=== PATIENT | male | born 1990 | race Caucasian/White ===

== ENCOUNTER 2017-07-02 09:25 | Inpatient (IN) | payer OTHER ==
[~2017-07-02] VITALS: Ht 175.3 cm; Wt 65.2 kg
[2017-07-02] VITALS (8 sets, daily range): BP systolic 110–122; BP diastolic 61–81; PULSE 61–72; RESP 12–20; O2SAT 100
--- NOTE | 2017-07-02 09:29 | ED.REPORT ---
HPI-General Illness Date of Service Jul 02, 2017 ED Provider: Wisam Colbert MD Pt is a 27 y/o male who presents to the ED via EMS due to aggressive behavior from meth use per [employer]. Medics were called by police after the patient needed to be sedated. Pt attempted to jump from a parked car into another strangers car and was fighting police once they arrived. At that time the patient stated that his eyes were "burning". Prior to arrival, the patient was given 5mg of versed and 250mg of ketamine prior to arrival, and his blood sugar was 132. Police report abrasions to pt's skin, but no remarkable injuries. Nursing Notes Stated Complaint: aggressive, confused Nursing Notes Reviewed: Yes General Time Seen by MD: 09:28 Chief Complaint Altered mental status Hx Obtained From: Police Unable to Obtain Hx: Patient condition, Mental status Arrived By: Police Recent Healthcare: No recent doctor visit, No recent hospitalization Past Medical History Past Medical History none reported Social History Drug Use: IV drugs Ambulatory Status Independent Review of Systems Unable to Obtain ROS Patient condition, Mental status, Intubated Physical Exam Vital Signs Vital Signs Date Time Temp Pulse Resp B/P Pulse Ox O2 Delivery O2 Flow Rate FiO2 07/02/17 10:03 100 Initial VS: Reviewed Alertness: Positive: Sedated, Unresponsive Head / Eyes: Normocephalic abrasion on forehead Cardiovascular: Heart rate NL, Regular rhythm, Heart sounds NL, No murmurs Abdomen: Soft, Non-tender Lower Extremity / Pelvis / MS: Atraumatic, No edema, Pelvis stable Skin: Warm, Dry Abrasion to anterior forehead and R shoulder Interpretation & Diagnostics Lab Results Interpretation Result Diagram: 07/02/17 0925 07/02/17 0925 Test 07/02/17 09:25 07/02/17 10:05 07/02/17 10:55 White Blood Count 8.9th/mm3 (3.8-10.1) Red Blood Count 4.48mil/mm3 (4.40-5.80) Hemoglobin 13.0g/dL (13.8-17.2) Hematocrit 38.3% (41.0-50.0) Mean Corpuscular Volume 85.5fL (81-100) Mean Corpuscular Hemoglobin 29.0pg (27.0-35.0) Mean Corpuscular Hemoglobin Concent 33.9% (32.0-37.0) Red Cell Distribution Width 13.3% (12.3-15.4) Platelet Count 212bil/L (150-400) Neutrophils (%) (Auto) 66.8% (40-74) Lymphocytes (%) (Auto) 22.9% (14-46) Monocytes (%) (Auto) 8.2% (4-12) Eosinophils (%) (Auto) 1.7% (0-5) Basophils (%) (Auto) 0.2% (0-3) Sodium Level 138mEq/L (134-144) Potassium Level 3.1mEq/L (3.5-5.2) Chloride Level 98mEq/L (97-108) Carbon Dioxide Level 20mmol/L (18-29) Blood Urea Nitrogen 14mg/dL (6-20) Creatinine 0.72mg/dL (0.76-1.27) Estimat Glomerular Filtration Rate 137mL/min (>59) Glucose Level 163mg/dL (60-99) Calcium Level 9.5mg/dL (8.5-10.1) Total Bilirubin 0.5mg/dL (0.0-1.2) Aspartate Amino Transf (AST/SGOT) 68U/L (0-50) Alanine Aminotransferase (ALT/SGPT) 33U/L (0-44) Alkaline Phosphatase 70U/L (25-150) Troponin T 0.010ug/L (0.0-0.011) Total Protein 7.9g/dL (6.4-8.4) Albumin 4.4g/dL (3.4-5.0) Salicylates Level < 3.0ug/mL (30-250) Acetaminophen Level < 15.0ug/mL Rx (10-25) Alcohols < 10mg/dL (0-10) Lactic Acid Level 1.0mmol/L (0.4-2.0) Urine Color Yellow (YELLOW) Urine Appearance Clear (CLEAR,HAZY) Urine pH 6.0 (5.0-8.0) Urine Specific [place] 1.031 (1.003-1.035) Urine Protein 30mg/dL (NEG,TRACE) Urine Glucose (UA) Negativemg/dL (NEGATIVE) Urine Ketones Negativemg/dL (NEGATIVE) Urine Occult Blood Trace (NEGATIVE) Urine Nitrite Negative (NEGATIVE) Urine Bilirubin Negative (NEGATIVE) Urine Urobilinogen Normalmg/dL (NORMAL) Urine Leukocyte Esterase Negative (NEGATIVE) Urine RBC 0-2/hpf (0-2) Urine WBC 0-5/hpf (0-5) Urine Epithelial Cells None/hpf (NONE-MOD) Urine Crystals None seen (NONE SEEN) Urine Bacteria None/hpf (NONE-FEW) Urine Hyaline Casts Occasional/lpf (NONE) Urine Granular Casts None seen (NONE SEEN) Urine Waxy Casts None seen (NONE SEEN) Urine Red Blood Cell Casts None seen (NONE SEEN) Urine White Blood Cell Casts None seen (NONE SEEN) Urine Mucus Present (None Seen) Urine Trichomonas None seen (NONE SEEN) Urine Yeast None (NONE SEEN) Urinalysis Comment None Urine Culture Reflexed Not indicated Lab Results Interpretation: u tox: positive for meth ECG Interpretation ECG Interpretation: T wave inversions in V1 and V2 no previous EKG for comparison Time: 10:58 Interpreted by: ED physician Normal ECG Interpretation: Normal rate (69), Normal sinus rhythm X-Ray Chest Interpretation Chest Xray Interpretation: IMPRESSION: Endotracheal tube as above. Dictated by: Fatimah Salazar M.D. on 07/02/2017 at 10:40 Approved by: Fatimah Salazar M.D. on 07/02/2017 at 10:40 View: Portable, 1 view Interpretation / Wet Read by: Interpret - Radiologist CT Head Interpretation IMPRESSION: 1. No acute intracranial hemorrhage. 2. Mild paranasal sinus disease. Dictated by: Brady Aguirre M.D. on 07/02/2017 at 10:00 Approved by: Brady Aguirre M.D. on 07/02/2017 at 10:01 Interpretation / Wet Read by: Interpret - Radiologist Procedures Intubation Intubation Procedure: Soft restrains administered at 09:42. Time: 09:36 Procedure Performed by: ED physician Consent / Setup / Site Prep: No consent - emergent, Time-out performed, Oxygen administered, Pulse oximeter applied, manager rental applied, Hand hygiene observed Patient Position: Head extended Blade / ET Tube / Route: [place] scope, Route: oral Procedural Sedation/Analgesia: Sedation: Etomidate Neuromuscular Agent: Succinylcholine ET Confirmation: Direct visualization, BS equal, End tidal CO2 device, CXR, Rising O2 sat Secured / Marked: ET tube device, Tube marked at ___ cm (24), Tube marked at lip Complications: None Post-Procedure: Condition improved, Tolerated procedure well, Patient stable Re-Eval/Medical Decision Med Decision/Clinical Course 27-year-old male presenting brought in by paramedics after police dispatched for patient being agitated. Patient was apparently jumping into random people's cars at [facility]. He was given ketamine 250 and Versed 5 in the field. On arrival his oxygen saturation was in the high 70s and low 80s. He was not protecting his airway. He was intubated emergently. His CT brain was unremarkable. His EKG showed T-wave inversions in V1 and V2 no previous for comparison. His labs are unremarkable. Troponin is negative. Patient was admitted to the ICU intubated for altered mental status, respiratory failure. Source of Hx: Old records Time of Eval: 09:36 Re-Evaluation/Progress Note: Pt rechecked. Administered intubation. Consultation : Referral / Consult Name: Victor M Danielson Consulted With: Hospitalist Call Returned at: 11:15 Electronics Repair Technician: Agrees with eval, Agrees with plan, Accepts admit Counseled Regarding: Diagnosis, Lab results, Need for admission Discharge & Departure Primary Impression: Altered mental status Altered mental status type: unspecified Qualified Code: R41.82 - Altered mental status, unspecified Additional Impression: Respiratory failure Chronicity: acute Respiratory failure complication: unspecified whether with hypoxia or hypercapnia Qualified Code: J96.00 - Acute respiratory failure , unspecified whether with hypoxia or hypercapnia Disposition: ADMITTED TO HOSPITAL Discharge Condition All VS Reviewed: Yes Condition: Stable Crit Care Except Billable Proc Time Spent: 105-134 minutes (130) Services Performed: Patient management by me, Time spent at bedside, Reviewing test results, Reviewing imaging, Discussing patient care, Documentation in record Scribe Attestation Portions of this note were transcribed by Ashanti Beard and Crystal Muir. I, Dr. Colbert, personally performed the history, physical exam and medical decision-making; I reviewed and confirmed the accuracy of the information in the transcribed note. Wisam Colbert MD Jul 02, 2017 09:29 Ashanti Beard Jul 02, 2017 09:38 Jennifer Muir Jul 02, 2017 11:05
[2017-07-02] MEDS ORDERED: 0.9% Sodium Chloride 1,000 ML IV ONE (09:33)
[2017-07-02 09:42] LABS: BASOPHILS % (AUTO) 0.2 % (0-3); EOSINOPHILS % (AUTO) 1.7 % (0-5); MONOCYTES % (AUTO) 8.2 % (4-12); Mean Corpuscular Volume 85.5 fL (81-100); NEUTROPHILS % (AUTO) 66.8 % (40-74); Platelet Count 212 bil/L (150-400)
[2017-07-02] MEDS ORDERED: Propofol Inj 1,000,000 MCG in IV Premix 1 EACH IV SCH (09:48)
--- NOTE | 2017-07-02 10:42 | DRSVH ---
PROCEDURE: X-RAY CHEST ONE VIEW, PORTABLE ([id number]) INDICATIONS: altered mental status TECHNIQUE: One view of the chest was acquired. COMPARISON: None. FINDINGS: Surgical changes and devices: Endotracheal tube is present measuring 16 mm superior to the rain. Lungs and pleura: No pleural effusions or pneumothorax. Lungs are clear. Mediastinum: Mediastinal contours appear normal. Heart size is normal. Bones and chest wall: No suspicious bony lesions. Overlying soft tissues appear unremarkable. IMPRESSION: Endotracheal tube as above. Dictated by: Fatimah Salazar M.D. on 07/02/2017 at 10:40 Approved by: Fatimah Salazar M.D. on 07/02/2017 at 10:40
--- NOTE | 2017-07-02 11:03 | DRSVH ---
PROCEDURE: CT BRAIN WITHOUT CONTRAST ([id number]) INDICATIONS: altered mental status TECHNIQUE: Noncontrast 4.5 mm thick angled axial sections acquired from the foramen magnum to the vertex, with c oronal reformats. COMPARISON: None. FINDINGS: Image quality: Diagnostic. Brain: There is no acute intra-axial or extra-axial hemorrhage. No extra-axial fluid collection is i dentified. There is no midline shift or mass effect. The orbits are grossly unremarkable. No large areas of diffusely decreased attenuation are evident within the brain to suggest diffuse cer ebral edema. No focal parenchymal abnormality is identified. The ventricles and cortical sulci are age-appropriate. Bones: Calvarium and visualized facial bones are grossly intact. Mild mucosal thickening is noted i nvolving the ethmoid air cells and bilateral maxillary sinuses. No air-fluid levels are evident. Ot herwise, the imaged paranasal sinuses and mastoid air cells are clear. IMPRESSION: 1. No acute intracranial hemorrhage. 2. Mild paranasal sinus disease. Dictated by: Brady Aguirre M.D. on 07/02/2017 at 10:00 Approved by: Brady Aguirre M.D. on 07/02/2017 at 10:01
[2017-07-02 11:08] LABS: APPEARANCE,URINE CLEAR (CLEAR,HAZY); COLOR,URINE YELLOW (YELLOW); OCCULT BLOOD,URINE TRACE (NEGATIVE); UROBILINOGEN,URINE NORMAL (NORMAL)
--- NOTE | 2017-07-02 11:22 | ABG ---
pH ____7.464 - 7.350 7.450 pCO2 ___36.1__ -mmHg 35.0 45.0 pO2 236 -mmHg 69.0 116 HCO3- ___25.9__ -mmol/L 22.0 26.0 ABE ____2.0__ -mmol/L -2.0 2.0 tHb ___11.5__ -g/dL 12.0 18.0 O2Hb ___98.9__ -% COHb ____2.0__ -% 0.0 1.5 MetHb ____0.0__ -% 0.4 1.5 FIO2 ___50.0__ -% K+ ____3.2__ -mmol/L 3.5 5.0
[2017-07-02] MEDS ORDERED: Ondansetron 2 mg/mL 2 mL Inj IVPUSH PRN ×2 (11:30→11:50)
[2017-07-02] MEDS ORDERED: Alum-Mag Hydrox-Simeth 30 mL Suspension PO PRN ×2 (11:30→11:50)
[2017-07-02] MEDS ORDERED: Succinylcholine Chloride 20 mg/mL 5 mL Inj ONE (11:32)
[2017-07-02] MEDS ORDERED: Etomidate 2 mg/mL 20 mL Inj IV ONE (11:32)
[2017-07-02] MEDS ORDERED: Senna-Docusate 8.6-50 mg Tablet PO PRN (11:50)
[2017-07-02] MEDS ORDERED: Polyethylene Glycol (PEG) 17 Gm Powder PO PRN (11:50)
[2017-07-02] MEDS ORDERED: Acetaminophen IV 1,000 MG in IV Premix 1 EACH IV PRN (11:50)
--- NOTE | 2017-07-02 12:28 | PCM.HPMED ---
Subjective Date of Service Jul 02, 2017 Primary Provider: Admitting Physician: Victor M Danielson Primary Care Physician: Alfonso Attending Physician: Victor M Danielson Admit Status: From the Emergency Department Chief Complaint: IV drug abuse Meth and Heroin, Acute Encephalopathy, combative requiring sedation and intubation. History of Present Illness: Pulmonology and Critical Care Consultation: Reason for Consult: Patient sedated requiring intubation and vent management as he withdraws from sedation. Requesting Physician: Victor M Tate and Brian Vallecillo Patient is a 27-year-old male with history of IV drug abuse who presented to [facility] ED via EMS secondary to aggressive/combative behavior approximately 8:30 AM this morning. The majority of the HPI was obtained from police report and ED physician note. Patient reportedly had been witnessed jumping from his own parked car into that of a [employer]'s car. At some point patient had reportedly ran across the street and entered [employer] and commenced to expose his genitalia. The [place] police were dispatched. Patient was combative with police on arrival. He was reportedly complaining to the police that his eyes were burning. EMS arrived and patient was initially sedated with Versed 5 mg and Ketamine 250 mg which apparently calmed him adequately. In the ED patient was unable to protect his airway and required intubation. Per police report the patient had admitted to using Methamphetamine as well as heroin and Seroquel this morning just prior to experiencing altered mental status. Patient has visible bilateral antecubital track emery on examination. Multiple small abrasions appearing new are present on his face and upper body. In the ED EKG showed ST elevations in the inferior leads with Twave inversion in V1, V2 with Normal sinus rhythm and no EKG for comparison. Urine toxicology was notable for Methamphetamine and Opioids. His Chem panel was significant for Hypokalemia at 3.1, AST of 68 in a 2:1 ratio over ALT, and Glucose 163. He was admitted to ICU for ventilator management secondary to IV drug abuse requiring sedation. CXR for ET tube placement was negative for Cardiopulmonary findings. CT Head was negative. Review of Systems: Not able to complete given patient intubated and Sedated, [facility] IV drug abuse heroin and Methamphetamine Surgical History Non reported Family History Non reported Social History Smoking Status: Unknown if Ever Smoker Exam Vital Signs Vital Sign - Last Date Time Temp Pulse Resp B/P Pulse Ox O2 Delivery O2 Flow Rate FiO2 07/02/17 11:55 67 20 122/74 100 ET Tube Exam General: Patient sedated and intubated on ventilator. HEENT: Normocephalic, no mastoid noble signs, 1.5 cm superficial oval glabellar abrasion, eyes, pinpoint pupils, equally round reactive to light, no erythema, no discharge, no nares patent, throat, patient intubated with ET tube. Mucous membranes pink and moist. Lungs: Clear to auscultation laterally all emanuel, no adventitious lung sounds heard, Heart: Regular rate and rhythm without murmur, no clicks, no rubs, no additional heart sounds. Abdomen: Soft, nondistended, bowel sounds not heard, no hepatosplenomegaly. Genitourinary: No Finley catheter present Skin: Patient appears dirty, skin is dry, and warm to touch, several superficial abrasions that appear new on the upper torso and forehead. Lower extremity toes with areas of ecchymoses, and thickening and yellowing of the toenails. Small superficial ulceration on dorsal first right lower extremity digit. Anterior tibial erythema bilaterally consistent with erythema nodosum present, bilateral antecubital fossa track emery present. A anterior right forearm bruise measuring 5 x 7 cm. Psychiatric: Patient sedated and intubated. Lab and Diagnostics Result Diagram: 07/02/1792407/02/17924 Assessment & Plan This is a 27-year-old male with history of IV heroin and methamphetamine use who is entered to the ED with acute encephalopathy after having used IV methamphetamine and possibly heroin use on morning of admission. Patient was sedated requiring intubation to protect airway. Patient was admitted to ICU on ventilator for ventilator management and withdrawal from sedation. #Acute drug-induced encephalopathy secondary to acute Methamphetamine intoxication, present remission, active - In the field patient was combative requiring sedation, at which point patient become unable to protect his airway and required to patient. - Typical signs and symptoms of acute methamphetamine intoxication are severe agitation, and halluciantions, as well as sympathomimetic toxidrome to include hyperthermia, hypertension, and dilated puplils. Acute phase peaks at 24-48 hours. - Typical signs and symptoms of methamphetamine withdrawal are somnolence, anhedonia, depression. - History of meth and heroin IV drug abuse. - Out patient medication Percocet 5/325 mg Q4H daily - Urine toxicology was positive for methamphetamine and opioids - Currently sedated and on ventilator. - Maintain O2 sats greater than 93% - Admit to ICU for ventilator management and observation as patient withdraws from his sedation. - When necessary Ativan as needed for agitation. - Plan to decrease sedation and reevaluate patient's mental status and DC ventilator when tolerated. Expect this could occur later today. Will downgraded to [facility] status at that time. - Ativan gtt started. With PRN Ativan pushes as needed. - Fentanyl gtt started at 25 mcg/hr - Propofol off - ABG ordered and pending - Patient remains normothermic and normotensive at this time. SBP 115/69, and Temp 36.6 - If febrile will use cooling blankets, and evapoarative measures. Avoid Tylenol as it is not recommended in methamphetamine intoxication. - Will avoid pure beta and combination beta/alpha blockers if patient becomes hypertensive> May use Nitroprusside 0.25 mcg/kg/min drip. Or phentolamine per uptodate. # Hypokalemia, acuity unknown, present on admission, active - Potassium 3.1 - We will initiate potassium repletion - Continuous cardiac monitoring #Transaminitis, acuity unknown, present on admission, active - Setting of history of IV drug abuse - AST of 68 with AST ALT ratio of 2:1 - Hepatitis panel ordered and pending #Hypoglycemia, present remission, active - Glucose 163 - We will defer to primary team for management\ #Chronic Hepatitis B, and Hepatitis C infection, secondary to IV drug use, present on admission, active -As evidenced by Hospital records from [facility]. -HIV and Hep panel pending and ordered prior to availability of out side records. - Hep B Quant [id number], and Hep C viral load not detectable per out side records from 11/2016 #Bipolar 1 disorder -takes Abilify as out patient, dose unknown -takes Celexa 40 mg daily as out patient. #Asthma - Epi pen for allergy as out patient Total time spent for pulmonary consult was 90 minutes. VTE Prophylaxis: SCDs Resuscitation Status: CPR: Attempt Resuscitation Attending Statement I have seen and examined this patient with the resident physician. Vital signs , labs, imaging have been reviewed. I agree with the assessment and plan above. Please refer to my separately dictated progress note for any modifications to above. Bruna Butler M.D. Pulmonary and Critical Care medicine Pager [phone] Bertrand Mancia DO Jul 02, 2017 12:28 Bruna Butler MD Jul 03, 2017 07:25
[2017-07-02] MEDS: Chlorhexidine 0.12% 15 mL Oral Solution MT SCH ×3 (12:30→20:47)
[2017-07-02] MEDS: 0.9% Sodium Chloride 1,000 ML IV SCH ×2 (13:38→21:26)
--- NOTE | 2017-07-02 14:07 | NUR ---
admit nurse note unable to obtain home medication list due to patient ventilated and sedated. no family present and no phone numbers or contact info. no historical data available. additionally unable to complete sleep apnea screen at this time.
--- NOTE | 2017-07-02 15:13 | PCM.HPMED ---
Subjective Date of Service Jul 02, 2017 Primary Provider: Admitting Physician: Victor M Danielson Primary Care Physician: Alfonso Attending Physician: Victor M Danielson Chief Complaint: Somnolence post Ketamine History of Present Illness: Finesse Serra is a 27 year old male with a PMH of polysubstance abuse who presents acutely somnolent having received Ketamine from EMS in the field. Upon evaluation the patient is intubated and sedated thus all relevant history was gained from First responders and the ED physician. Apparently the patient was in the [employer]'s drive through, at which point he became quite agitated and exited his vehicle. He then entered a stranger's vehicle behind him and was manic and nonsensical, upon being evicted from that vehicle he proceeded across the street to [employer](a purveyor of firearms) and exposed his genitalia to staff. Police and EMS were alerted and found the patient to be acutely agitated and combative. He admitted to consumption of both Methamphetamine and Heroine, and was non-compliant to the point that he had to be restrained and injected with Ketamine. He then became quite somnolent, and was taken to the [facility] ED where it was determined that he was unable to protect his airway and the patient was intubated. In the ED laboratory and imaging evaluation including brain CT was unremarkable save for mild hypokalemia and slightly elevated AST. He was then admitted to the ICU for ventilatory management. Review of Systems: Comprehensive ROS was unable to be obtained in this intubated and sedated patient Home Medications None PMH Polysubstance abuse Surgical History None available Family History Patient could not relate any family history Social History Hx Alcohol Use: Yes Hx Substance Use: Yes Smoking Status: Unknown if Ever Smoker Exam Vital Signs Vital Sign - Last Date Time Temp Pulse Resp B/P Pulse Ox O2 Delivery O2 Flow Rate FiO2 07/02/17 14:41 69 110/69 100 24 07/02/17 12:00 36.6 14 07/02/17 11:55 ET Tube Exam Gen: Intubated and sedated young man with minimal response to external stimuli Neck: Supple, non tender, no JVD, no lymphadenopathy HEENT: PERRL, does not motion track, no scleral icterus, no conjunctival pallor CV: RRR, no murmurs rubs or gallops Resp: Lungs with mild diffuse rhonchi, no wheezing, good air movement Abd: Soft, no rebound masses guarding or organomegaly Extr: BL needle track emery in antecubital fossa, no clubbing cyanosis or edema Neuro: Difficult to assess in intubated and sedated patient, no focal neurologic deficit Skin: Multiple bruises and abrasion appearing in various stages of healing. Lab and Diagnostics Labs Item Value Date Time Red Blood Count 4.48 mil/mm3 07/02/17924 Mean Corpuscular Volume 85.5 fL 07/02/17924 Mean Corpuscular Hemoglobin 29.0 pg 07/02/17924 Mean Corpuscular Hemoglobin Concent 33.9 % 07/02/17924 Red Cell Distribution Width 13.3 % 07/02/17924 Neutrophils (%) (Auto) 66.8 % 07/02/17924 Monocytes (%) (Auto) 8.2 % 07/02/17924 Lymphocytes (%) (Auto) 22.9 % 07/02/17924 Eosinophils (%) (Auto) 1.7 % 07/02/17924 Basophils (%) (Auto) 0.2 % 07/02/17924 Estimat Glomerular Filtration Rate 137 mL/min 07/02/17924 Lactic Acid Level 1.8 mmol/L 07/02/17 1240 Magnesium Level 2.3 mg/dL 07/02/17 124 Calcium Level 9.5 mg/dL 07/02/17924 Total Bilirubin 0.5 mg/dL 07/02/17924 Aspartate Amino Transf (AST/SGOT) 68 U/L H 07/02/17924 Alanine Aminotransferase (ALT/SGPT) 33 U/L 07/02/17924 Alkaline Phosphatase 70 U/L 07/02/17924 Troponin T 0.010 ug/L 07/02/17924 Total Protein 7.9 g/dL 07/02/17924 Albumin 4.4 g/dL 07/02/17924 Salicylates Level < 3.0 ug/mL L 07/02/17924 Acetaminophen Level < 15.0 ug/mL Rx 07/02/17924 Alcohols < 10 mg/dL 07/02/17924 Result Diagram: 07/02/1792407/02/17924 Microbiology Nasal MRSA pending X-Rays, CTs and MRIs X-RAY CHEST ONE VIEW, PORTABLE IMPRESSION: Endotracheal tube as above. Dictated by: Fatimah Salazar M.D. on 07/02/2017 at 10:40 Approved by: Fatimah Salazar M.D. on 07/02/2017 at 10:40 CT BRAIN WITHOUT CONTRAST IMPRESSION: 1. No acute intracranial hemorrhage. 2. Mild paranasal sinus disease. Dictated by: Brady Aguirre M.D. on 07/02/2017 at 10:00 Approved by: Brady Aguirre M.D. on 07/02/2017 at 10:01 . 12-lead ECG T wave inversions in V1 and V2 no previous EKG for comparison Assessment & Plan Finesse Lucio is a 27 year old man with a PMH of polysubstance abuse who presents to the ED somnolent after receiving Ketamine in the field from EMS due to agitation and combative behavior following and incident of irrational and sexually aggressive behavior in public. The patient was intubated because it was determined that he likely could not protect his airway. Acute drug-induced encephalopathy, present remission, active -Secondary to both EMS administered Ketamine, and Utox positive Methamphetamine and Heroine -Patient arrived to the ED very somnolent, was intubated to protect his airway -As patient metabolizes administered drugs will likely be able to extubate in the near future -Lorazepam available PRN for agitation post extubation -Chemical dependency reheater referral sent -Will monitor closely for signs of acute withdrawal and treat symptomatically Hypokalemia, acuity unknown, present on admission, active - Etiology uncertain at this time - Potassium 3.1 - We will initiate potassium repletion - Continuous cardiac monitoring Polysubstance abuse, POA, chronic. Active -Upon arrival Utox positive for Meth and Opiates -Prior to sedation patient admitted to taking Meth and Heroine -Track emery observed on physical exam -Chemical dependency reheater referral -HIV and Hepatitis panel pending Transaminitis, acuity unknown, present on admission, active - Setting of history of IV drug abuse - AST of 68 with AST ALT ratio of 2:1 - Hepatitis panel ordered and pending Hyperglycemia, present remission, active - Glucose 163 - Will await repeat lab evaluation of fasting glucose Patient Status: Observation, anticipated length of stay <2 midnights. Patient will likely be able to be extubated in the near future and downgraded to PCC. Afterwhich he will likely to medically stable to discharge, either to a treatment facility, psychiatric chance depending upon evaluation of baseline mental status, or to home if patient is sufficient cogent to rationally decide to forestall substance abuse treatment. Pain Evaluation: Adequate Pain Control GI Prophylaxis: H2 rosita VTE Prophylaxis: SCDs, Other (Patient will likely not be immobile for prolonged period) VTE Mechanical Devices: Intermittant Pneumatic CD Resuscitation Status: CPR: Attempt Resuscitation Time spent 25 min of critical care was spent on this intubated patient's admission and management Attending Statement The patient was seen and examined together with Resident/House-staff on 07/02/17 and I agree with the history, exam and plan as outlined in the note above. Brian Rajan DO Jul 02, 2017 15:13 Victor M Danielson Jul 02, 2017 17:12
[2017-07-02] MEDS ORDERED: KCl 40 mEq/500 mL D5W(K 3 - 3.7 & Creat < 2) IV ONE (15:25)
[2017-07-02] MEDS ORDERED: LORazepam 100 mg/100 mL NS 100 MG in IV Premix 100 EACH IV SCH (16:19)
--- NOTE | 2017-07-02 16:42 | NUR ---
Social Work: Family Contact Information D: CHILDREN'S COUNSELOR received request from bedside RN locating family/NOK for this patient. The patient is currently vented, sedated and unable to answer questions at this time. The only belongings with this patient are a photo identification. CHILDREN'S COUNSELOR was able to obtain medical records from [facility]. The patient is followed by the [facility] [place] in [place] for primary care. No NOK contact information included in these records. The pt has a history of Bipolar Disorder with manic episodes along with polysubstance IV substance use. CHILDREN'S COUNSELOR spoke with staff at the [facility] [place] in [place], they state that the patient is followed by Dr. Vivek Loaiza for primary care. The emergency contact is Alhaji Lucio ([phone]). t/c to Alhaji [facility] ([phone]); He confirms that he is the patient's father. He states that the pt is homeless right now. CHILDREN'S COUNSELOR provided him with the contact information for the straight cutter station to get a medical update on the patient. Pt's NOK information updated with Registration A: Pt who is I with ambulation at baseline. P: Evolving; CHILDREN'S COUNSELOR to continue to follow to assess for discharge needs and meet with the patient to provide resources once orders are received and pt is appropriate. WOODY Rosas
[2017-07-02] MEDS: fentaNYL 2,500 mCg/250 mL 2,500 MCG in IV Premix 1 EACH IV SCH (17:24)
[2017-07-02] MEDS: LORazepam Inj 100 MG in 0.9% Sodium Chloride 50 ML IV SCH (17:24)
--- NOTE | 2017-07-02 17:31 | ABG ---
DateTimeAnalyzed 17:22:01 -_ pH ____7.505 - 7.350 7.450 pCO2 ___33.7__ -mmHg 35.0 45.0 pO2 108 -mmHg 69.0 116 HCO3- ___26.6__ -mmol/L 22.0 26.0 ABE ____3.3__ -mmol/L -2.0 2.0 tHb ___12.3__ -g/dL 12.0 18.0 O2Hb ___98.3__ -% COHb ____1.9__ -% 0.0 1.5 MetHb ____0.0__ -% 0.4 1.5 sO2 ___99.8__ -% FIO2 ___24.0__ -% Drawn By rs - Date/Time Notified____ 17:30:00 -_ Notified By rs - Notified Whom [facility] [place] - K+ ____3.3__ -mmol/L 3.5 5.0 tO2 ___17.1__ -Vol%
--- NOTE | 2017-07-02 18:27 | NUR ---
Admit note.. Received from ER at 1200. Pt somnolent on propofol gtt. Was sedate for several hours but this evening has become agitated when awoken and has made numerous gestures to pull out tubes and climb out of bed. MD'S here to assess and pt was switched from propofol to fentanyl and ativan and is currently more sedate. Electrician Constructor Supervisor was contacted to search out a relative for the pt. His father Alhaji was reached and has been updated by phone. Pt's mother Mali Lindsey is also a drug abuser and Alhaji has requested she not visit the pt. Pt's grandparents are local and are ok for visitation.. Shira and Jun Brewer.
--- NOTE | 2017-07-02 19:14 | CONS ---
[address] [address] CONSULTATION REPORT PATIENT: HOWARD BELL : 1990 MR#: [id number] ADMIT: 07/02/2017 JOB ID: [id number] DATE OF SERVICE: 07/02/2017 PULMONARY CRITICAL CARE CONSULTATION: REASON FOR CONSULTATION: This patient is a 33-year-old gentleman seen in consultation at the request of Dr. Juan Montano for acute respiratory failure. The patient was seen and evaluated with Dr. Bertrand Mancia, resident physician. Please refer to his separate detailed note for complete information. The following is a brief attending note. HISTORY OF PRESENT ILLNESS: Briefly, the patient has a history of polysubstance abuse and was acting agitated today in public, because of which police and medics became involved, he had to be sedated and intubated and was brought into the hospital after that. Currently he is on mechanical ventilation, hemodynamically stable, although intermittently agitated despite high-dose propofol for which reason he will be switched to lorazepam instead. He has a history of a recent hospitalization at [facility] in November when he was diagnosed with hepatitis B and C. Past medical history, social history, family history, and review of systems could not be obtained directly from the patient, but any information obtained from medical record is per Dr. Mancia's separate note and also a complete physical exam can be found in his separate note. PAST MEDICAL HISTORY: Notable for: 1. Hepatitis B and C. 2. Polysubstance abuse. 3. Current urine tox positive for opiates and cocaine. PHYSICAL EXAMINATION: Vital signs reviewed. General: He is agitated, currently in bed moving all limbs. Not really following commands. Chest is clear to auscultation. LABORATORY DATA: Labs reviewed. Notable for slightly elevated AST. IMAGING: Chest x-ray reviewed. ET tube is in an appropriate position and lungs are clear. ASSESSMENT AND RECOMMENDATIONS: 1. Acute hypoxic respiratory failure on mechanical ventilation. 2. Polysubstance abuse including cocaine and opiate use. 3. History of hepatitis B and C. 4. History of bipolar disorder. This young man is presenting with what sounds like an acute psychotic episode that could have been due to his bipolar disorder exacerbated by acute cocaine and opiate use. He is currently intubated, on propofol alone, and the plan is to switch to Ativan plus fentanyl to prevent opiate withdrawal. I am hoping we can keep him stable overnight and proceed to attempt spontaneous breathing trial and extubation tomorrow morning. He does not appear to have any other acute ongoing issues - labs and hemodynamics are stable at the moment. We have an EEG pending to confirm that he is being adequately ventilated. He is on appropriate DVT and GI prophylaxis. CRITICAL CARE TIME: 35 minutes.
[2017-07-02] MEDS: Famotidine Inj 20 MG in IV Premix 1 EACH IV SCH (20:47)
[2017-07-03] VITALS (10 sets, daily range): BP systolic 98–119; BP diastolic 50–77; PULSE 66–94; RESP 10–20; O2SAT 95–100
[2017-07-03] MEDS: Chlorhexidine 0.12% 15 mL Oral Solution MT SCH ×6 (01:06→20:17)
[2017-07-03] MEDS ORDERED: KCl 40 mEq/500 mL D5W(K 3 - 3.7 & Creat < 2) IV ONE (01:25)
--- NOTE | 2017-07-03 05:15 | ABG ---
DateTimeAnalyzed 05:08:00 -_ pH ____7.351 - 7.350 7.450 pCO2 ___45.1__ -mmHg 35.0 45.0 pO2 ___62.1__ -mmHg 69.0 116 HCO3- ___24.3__ -mmol/L 22.0 26.0 ABE ___-0.9__ -mmol/L -2.0 2.0 tHb ___11.3__ -g/dL 12.0 18.0 O2Hb ___88.3__ -% COHb ____1.3__ -% 0.0 1.5 MetHb ____0.8__ -% 0.4 1.5 sO2 ___90.2__ -% 25.0 FIO2 ___24.0__ -% PEEP ____5.0__ -cmH2O Set_RR ___12.0__ -b/min Vt __450.0__ -L Drawn By AF - Date/Time Notified____ 05:14:00 -_ Oxygen Device 1 VENTILATOR - B 759 -mmHg tO2 ___14.0__ -Vol% Travis test _Positive -
[2017-07-03] MEDS: 0.9% Sodium Chloride 1,000 ML IV SCH ×2 (07:44→17:55)
[2017-07-03] MEDS: Famotidine Inj 20 MG in IV Premix 1 EACH IV SCH ×2 (07:44→20:17)
[2017-07-03 08:54] LABS: BASOPHILS % (AUTO) 0.1 % (0-3); EOSINOPHILS % (AUTO) 1.6 % (0-5); MONOCYTES % (AUTO) 9.4 % (4-12); Mean Corpuscular Hemoglobin 28.5 pg (27.0-35.0); NEUTROPHILS % (AUTO) 71.4 % (40-74); Platelet Count 168 bil/L (150-400)
--- NOTE | 2017-07-03 10:33 | PCM.PNMED ---
Subjective Date of Service Jul 03, 2017 Subjective Pulmonology and Critical Care progress note: Brief hx: 27-year-old male with history of bipolar 1, hepatitis B, and C, IV drug abuse including Methamphetamine and Heroine who presented to [facility] ED secondary to acute psychosis secondary bipolar 1 and acute methamphetamine toxicosis. He was sedated in the field. In ED pt required intubation. He was admitted to ICU for ventilator management and required further sedation with IV lorazepam and fentanyl. Overnight: Patient vent settings adjusted to respiratory rate of 10 give ABG results. He has not been overbreathing vent. Patient did well overnight per nursing and remains sedated on IV lorazepam 4mg/hr and Fentanyl 150 mcg/hr. ABG this AM showed pH 7.351, PCO2 45.1, PO2 of 62.0, and FIO2 24, PEEP 5, Rate 10, Vt 450. Patients Hypokalemia has corrected and K+ is currently 3.8. Exam Vital Signs Vital Sign - Last Date Time Temp Pulse Resp B/P Pulse Ox O2 Delivery O2 Flow Rate FiO2 07/03/17 07:31 36.7 66 10 98/62 99 Mechanical Ventilator 24 Intake and Output 07/02/17 07/02/17 07/03/17 Cumulative From/Thru 15:00 23:00 07:00 07/02/17 12:00 - 07/03/17 06:14 Intake Total 373 ml 2406 ml 2779 ml Output Total 1250 ml 300 ml 1550 ml Balance -877 ml 2106 ml 1229 ml Intake IV Total 373 ml 2406 ml 2779 ml Output Urine Total 1250 ml 300 ml 1550 ml # Bowel Movements 0 0 Exam General: Patient remains sedated and intubated on ventilator. HEENT: Normocephalic, no mastoid noble signs, 1.5 cm superficial oval glabellar abrasion, eyes, pinpoint pupils, equally round reactive to light, no erythema, no discharge, patient intubated with ET tube. Mucous membranes pink and moist. Lungs: Clear to auscultation laterally all emanuel, no adventitious lung sounds heard, Heart: Regular rate and rhythm without murmur, no clicks, no rubs, no additional heart sounds. Abdomen: Soft, nondistended, bowel sounds not heard Genitourinary: Finley catheter present Skin: skin is warm and dry, several superficial abrasions that appear new on the upper torso and forehead. Lower extremity toes with areas of ecchymoses, and thickening and yellowing of the toenails. Small superficial ulceration on dorsal first right lower extremity digit. Anterior tibial erythema bilaterally , bilateral antecubital fossa track emery present. A anterior right forearm bruise measuring 5 x 7 cm. Psychiatric: Patient sedated and intubated. IVs and Medications Medications Reviewed: Medications were reviewed in detail Lab and Diagnostics Result Diagram: 07/03/17 0350 07/03/17 035 Microbiology Nasal MRSA pending X-Rays, CTs and MRIs X-RAY CHEST ONE VIEW, PORTABLE IMPRESSION: Endotracheal tube as above. Dictated by: Fatimah Salazar M.D. on 07/02/2017 at 10:40 Approved by: Fatimah Salazar M.D. on 07/02/2017 at 10:40 CT BRAIN WITHOUT CONTRAST IMPRESSION: 1. No acute intracranial hemorrhage. 2. Mild paranasal sinus disease. Dictated by: Brady Aguirre M.D. on 07/02/2017 at 10:00 Approved by: Brady Aguirre M.D. on 07/02/2017 at 10:01 . 12-lead ECG T wave inversions in V1 and V2 no previous EKG for comparison Assessment & Plan This is a 27-year-old male with history of IV heroin and methamphetamine use who is entered to the ED with acute encephalopathy after having used IV methamphetamine and possibly heroin use on morning of admission. Patient was sedated requiring intubation to protect airway. Patient was admitted to ICU on ventilator for ventilator management and withdrawal from sedation. #Acute drug-induced encephalopathy and psychosis secondary to acute Methamphetamine intoxication, present remission, active - In the field patient was combative requiring sedation, at which point patient become unable to protect his airway and required to patient. - History of meth and heroin IV drug abuse. - Out patient medication Percocet 5/325 mg Q4H daily - Urine toxicology was positive for methamphetamine and opioids - Currently sedated and on ventilator. - Maintain O2 sats greater than 93% - SBP 98/62, and Temp 36.7 - If febrile will use cooling blankets, and evapoarative measures. Avoid Tylenol as it is not recommended in methamphetamine intoxication. - Will avoid pure beta and combination beta/alpha blockers if patient becomes hypertensive> May use Nitroprusside 0.25 mcg/kg/min ip. Or phentolamine per uptodate. - When necessary Ativan as needed for agitation. - Plan to decrease sedation today with plans to extubate. - Decrease sedation Ativan gtt in preparation for extubation. Continue Ativan pushes as needed. - Decrease sedation Fentanyl gtt in preparation for extubation - EKG today - Will start Haldol for psychosis pending EKG, # Hypokalemia, acuity unknown, present on admission, resolved - Potassium 3.8 - We will initiate potassium repletion - Continuous cardiac monitoring #Transaminitis, acuity unknown, present on admission, active - likely secondary to IV drug abuse and hx of Hepatitis. - Setting of history of IV drug abuse - AST of 68 with AST ALT ratio of 2:1 - Hepatitis panel ordered and pending #Hypoglycemia, present remission, active - Glucose 163 on admission - We will defer to primary team for management #Chronic Hepatitis B, and Hepatitis C infection, secondary to IV drug use, present on admission, active -As evidenced by Hospital records from [facility]. -HIV and Hep panel pending and ordered prior to availability of out side records. - Hep B Quant 16358, and Hep C viral load not detectable per out side records from 11/2016 #Bipolar 1 disorder -takes Abilify as out patient, dose unknown -takes Celexa 40 mg daily as out patient. #Asthma - Epi pen for allergy as out patient Total time spent for pulmonary critical care time 40 minutes. GI Prophylaxis: H2 rosita VTE Prophylaxis: SCDs, Other (Patient will likely not be immobile for prolonged period) VTE Mechanical Devices: Intermittant Pneumatic CD Resuscitation Status: CPR: Attempt Resuscitation Attending Statement I have seen and examined this patient with the resident physician. Vital signs , labs, imaging have been reviewed. I agree with the assessment and plan above. Please refer to my separately dictated progress note for any modifications to above. Bruna Butler M.D. Pulmonary and Critical Care medicine Pager [phone] Bertrand Mancia DO Jul 03, 2017 10:32 Bruna Butler MD Jul 05, 2017 08:09
[2017-07-03] MEDS ORDERED: Haloperidol 5 mg/mL Inj IVPUSH PRN (11:55)
--- NOTE | 2017-07-03 13:03 | PROG NOTE ---
[address] [address] PROGRESS NOTE PATIENT: HOWARD BELL : 1990 MR#: [id number] ADMIT: 07/02/2017 JOB ID: [id number] DATE: 07/03/2017 PULMONARY CRITICAL CARE PROGRESS NOTE: The patient is a 27-year-old with history of polysubstance abuse and bipolar disorder, admitted with respiratory failure. The patient was seen and evaluated with resident physician, Bertrand Mancia DO. Please refer to his separate detailed note for complete information. The following is a brief attending note. INTERVAL HISTORY: Remains intubated overnight. No major events. REVIEW OF SYSTEMS: Could not be obtained. PHYSICAL EXAMINATION: Vital signs reviewed. Afebrile. He is on FiO2 of 24%, PEEP of 5. General: Intubated, sedated. Currently not responsive. Chest clear to auscultation. LABORATORIES: Reviewed. IMAGING: Reviewed. ASSESSMENT: 1. Polysubstance abuse -- acute cocaine and opiate intoxication. 2. Acute hypoxic respiratory failure on mechanical ventilation since July 02. 3. History of hepatitis B and C. 4. Bipolar disorder. RECOMMENDATIONS: This 27-year-old man was intubated essentially for behavioral issues in the setting of acute intoxication with cocaine and opiates. He has been kept sedated overnight and I would like to put him on a pressure support trial this morning and after about 30 minutes or so, if he is doing well, we should just turn off all his sedation and extubate him. We will make sure he has IV Haldol ordered p.r.n. for any acute psychotic symptoms. He has no current electrolyte abnormalities or EKG changes that would be worrisome or suggest side effects from his drug use. He is on appropriate DVT and GI prophylaxis. CRITICAL CARE TIME: 30 minutes.
[2017-07-03] MEDS ORDERED: Flumazenil 0.1 mg/mL 5 mL Inj IV ONE (13:50)
--- NOTE | 2017-07-03 14:08 | NUR ---
Social Work: Initial Assessment/Multidisciplinary Rounds D: Per EMR review, pt is a 27 year old male admitted for AMS/Respiratory. Pt is [facility] with no additional insurance, LTC or VA benefits. PCP is through the [facility] in [place]. NOK is Alhaji Lucio, father, . Advanced directives not completed. Readmit score is high, 3/8. Pt discussed in multidisciplinary rounds; plan is to wean sedation and to extubate if pt does not become agitated. SEED SALES MANAGER spoke with pt's father again via telephone to complete initial assessment. He states that he is almost positive the patient has been homeless living in his van. Pt is I at baseline, uses no DME and has never required any HH or skilled rehab services. Pt has been in at least one inpatient treatment program in [facility] but he is not aware whether the patient completed this or not. He is hopeful that the patient will be receptive to treatment once he is medically stable. SEED SALES MANAGER informed him of the process for getting into treatment and that pt will need a bedside assessment from [facility]. He is appreciative of information and states that he is coming up to the hospital today. SEED SALES MANAGER will visit him at bedside. A: Pt who is I at baseline with polysubstance use history. P: Evolving; WOODY to continue to follow pt's clinical course closely and assist with discharge planning as needs become known WOODY Rosas Addendum: 07/03/17 at 1415 by SANDER CHAVEZ Amended: Links added.
[2017-07-03] MEDS ORDERED: NALOXONE IV PRN ×2 (14:10)
[2017-07-03] MEDS ORDERED: NS IV PRN ×2 (14:10)
[2017-07-03] MEDS ORDERED: Naloxone Inj 2 MG in 0.9% Sodium Chloride 500 ML IV SCH (14:10)
[2017-07-03] MEDS ORDERED: Naloxone 0.4 mg/mL 10 mL Inj IM PRN (14:15)
[2017-07-03] MEDS ORDERED: Naloxone 0.4 mg/mL 10 mL Inj IV PRN (14:20)
[2017-07-03] MEDS: LORazepam Inj 100 MG in 0.9% Sodium Chloride 50 ML IV SCH (16:48)
[2017-07-03] MEDS: fentaNYL 2,500 mCg/250 mL 2,500 MCG in IV Premix 1 EACH IV SCH (17:13)
--- NOTE | 2017-07-03 17:42 | NUR ---
Extubation.. Had Fentanyl and Ativan gtts weaned down and pt was somewhat more responsive, but minimally to following command. Was able to do a pressure support trial for several hours, was seen by MD and order received to extubate. Extubated at 1345, but soon after was noted to be having airway obstruction. Jaw thrust maneuver used and MD called to the bedside.. narcan given per orders.. totalling a dose of .4 mg titrated. Pt remained somnolent but was able to maintain airway better. Suctioned for large amts of thick creamy secretions and airway sounds improved. Has been postioned for airway protection and placed on CO2 monitor. Later this afternoon has been arousable and opened eyes and squeezed hand on command. Pt's father Alhaji came from [place] and was able to speak with MD and Compliance Engineer. He is supportive of the pt and has hopes that followup with drug treatment will occur when pt is Dc'd.
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
[2017-07-04] MEDS: Chlorhexidine 0.12% 15 mL Oral Solution MT SCH ×2 (00:09→03:48)
[2017-07-04 00:10] VITALS: BP 115/73; PULSE 86; RESP 15; O2SAT 99
[2017-07-04 03:41] LABS: BASOPHILS % (AUTO) 0.1 % (0-3); MONOCYTES % (AUTO) 8.7 % (4-12); Mean Corpuscular Hemoglobin 28.9 pg (27.0-35.0); Mean Corpuscular Volume 88.4 fL (81-100); NEUTROPHILS % (AUTO) 64.4 % (40-74); Platelet Count 177 bil/L (150-400)
[2017-07-04] MEDS: 0.9% Sodium Chloride 1,000 ML IV SCH ×2 (03:48→14:15)
[2017-07-04 04:00] VITALS: BP 115/65; PULSE 79; RESP 16; O2SAT 96
--- NOTE | 2017-07-04 06:22 | NUR ---
RA/mentation pt on RA SpO2 high 90s, ETCo2 monitor 38-45 pt opens eyes to name answers yes and no questions then falls back to sleep and is snoring, pt moves all over bed, pt is able to follow simple commands. tele SR 80s
[2017-07-04 08:00] VITALS: BP 115/70; PULSE 82; RESP 19; O2SAT 100
[2017-07-04 09:10] VITALS: PULSE 92
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
[2017-07-04] MEDS: Famotidine Inj 20 MG in IV Premix 1 EACH IV SCH ×2 (11:42→20:49)
[2017-07-04 12:09] LABS: Hepatitis A Antibody IgM Negative (Negative); Hepatitis B Core Antibody IgM Negative (Negative)
--- NOTE | 2017-07-04 13:21 | NUR ---
Evaluation completed. Please go to "Notes" then click on "Assessments and Notes" (bottom left corner of screen). Then select appropriate discipline tab on top of screen.
[2017-07-04 14:16] VITALS: BP 126/73; PULSE 86; RESP 18; O2SAT 98
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
[2017-07-04 20:50] VITALS: BP 118/69; PULSE 97; RESP 20; O2SAT 100
[2017-07-05 00:10] VITALS: BP 114/71; PULSE 75; RESP 13; O2SAT 97
[2017-07-05] MEDS: 0.9% Sodium Chloride 1,000 ML IV SCH (00:46)
[2017-07-05 03:43] LABS: BASOPHILS % (AUTO) 0.2 % (0-3); EOSINOPHILS % (AUTO) 4.8 % (0-5); MONOCYTES % (AUTO) 12.1 % (4-12); Mean Corpuscular Hemoglobin 28.9 pg (27.0-35.0); Platelet Count 207 bil/L (150-400)
[2017-07-05 04:31] VITALS: BP 117/74; PULSE 75; RESP 12; O2SAT 97
--- NOTE | 2017-07-05 05:19 | NUR ---
Mentation Pt very drowsy but opens eyes to name and is able to answer questions and follow commands. Pt able to feed self with no coughing or choking noted. Pt A&Ox3 and able to move independently in bed. Pt was unaware of how he came to the hospital and nursing informed pt of what had occurred. Pt resting most of shift. VSS and Tele SR
[2017-07-05 08:01] VITALS: BP 115/61; PULSE 75; PULSE 89; RESP 16; O2SAT 99
[2017-07-05] MEDS: Famotidine Inj 20 MG in IV Premix 1 EACH IV SCH (09:04)
--- NOTE | 2017-07-05 10:04 | PCM.DIMED ---
Henok Zhou DO 07/05/17 1004: Discharge Instructions Date of Service Jul 05, 2017 Dates of Hospitalization Jul 02, 2017 at 11:31 Discharge Diagnosis Discharge Diagnosis Acute drug-induced encephalopathy and psychosis secondary to acute Methamphetamine intoxication Hypokalemia Transaminitis Hypoglycemia Chronic Hepatitis B, and Hepatitis C infection Bipolar 1 disorder Asthma Diet Discharge Diet: No restrictions Activity Discharge Activity: No restrictions Call your provider Call your provider for: Fever or Chills, Shortness of breath, Bleeding, Chest pain, Vomitting, Excessive diarrhea, Weakness (unilateral) Patient Instructions Patient Instructions Establish with a primary care provider Follow-up plan Follow up with a Primary Care Provider in one week to establish care with a physician. [facility] for [facility] abuse counseling and recovery. Follow-up Provider: [facility] MILLER Follow-up with PCP in: 1 week [facility] Follow-up in: 1 week Mynor Hdz MD 07/06/17 0554: Discharge Instructions Attending's Statement The patient was seen and examined together with Dr. Zhou on 07/05/2017 and I agree with the history, exam and plan as outlined in the note above. . Henok Zhou DO Jul 05, 2017 10:04 Mynor Hdz MD Jul 06, 2017 05:54
--- NOTE | 2017-07-05 12:50 | NUR ---
Discharge note/Nuero/Mobility Patient a/o x 3, forgetful at times. Patient c/o gen pain, aware, no pain meds ordered. Patient sleeping intermittently this a.m., oob amb in candelario with sba, patient unsteady on feet at times. Patient showered with assist. Meka diet well. Lungs clear with nonproductive cough. VSS, tele SR. IV SL and tele discontinued intact. Patient and grandfather given discharge instructions, no med rec available, info on diagnosis. All questions answered. Patient taken to the car via wheelchair with all belongings and discharged home with grandfather.
--- NOTE | 2017-07-05 14:14 | NUR ---
Social Work Note: Discharge Data& Assessment: Per in multidisciplinary rounds, pt is medically ready to discharge. Finesse Serar is a 27 year old male admitted on 07/02/2017 for AMS and Respiratory symptoms. Per MD pt is medically improved and ready to discharge. MD placed [facility] order to see pt for substance use at time of discharge and pt left prior to [facility] seeing pt. Pt discharged home with grandfather. No other needs identified. Plan: Per pt is medically ready to discharge to family's home via POV. Pt left prior to [facility] seeing pt for substance use. No other needs identified. WOODY Schumacher
--- NOTE | 2017-07-05 15:59 | PCM.DC.MED ---
Discharge Summary Date of Service Jul 05, 2017 Dates of Hospitalization Date of Hospital Admission Jul 02, 2017 at 11:31 Date of Discharge: Jul 05, 2017 Providers: Admitting Physician: Victor M Danielson Primary Care Physician: Alfonso Attending Physician: Mynor Hdz MD Diagnosis at Time of Discharge Diagnosis at Time of Discharge Acute drug-induced encephalopathy and psychosis secondary to acute Methamphetamine intoxication Hypokalemia Transaminitis Hypoglycemia Chronic Hepatitis B, and Hepatitis C infection Bipolar 1 disorder Asthma Procedures XRay, CTs & MRIs X-RAY CHEST ONE VIEW, PORTABLE IMPRESSION: Endotracheal tube as above. Dictated by: Fatimah Salazar M.D. on 07/02/2017 at 10:40 Approved by: Fatimah Salazar M.D. on 07/02/2017 at 10:40 CT BRAIN WITHOUT CONTRAST IMPRESSION: 1. No acute intracranial hemorrhage. 2. Mild paranasal sinus disease. Dictated by: Brady Aguirre M.D. on 07/02/2017 at 10:00 Approved by: Brady Aguirre M.D. on 07/02/2017 at 10:01 . ECG 12 Lead T wave inversions in V1 and V2 no previous EKG for comparison Brief History Finesse Serra is a 27 year old male with a PMH of polysubstance abuse who presents acutely somnolent having received Ketamine from EMS in the field. Upon evaluation the patient is intubated and sedated thus all relevant history was gained from First responders and the ED physician. Apparently the patient was in the [employer] [place] through, at which point he became quite agitated and exited his vehicle. He then entered a stranger's vehicle behind him and was manic and nonsensical, upon being evicted from that vehicle he proceeded across the street to [employer](a [employer] of firearms) and exposed his genitalia to staff. Police and EMS were alerted and found the patient to be acutely agitated and combative. He admitted to consumption of both Methamphetamine and Heroine, and was non-compliant to the point that he had to be restrained and injected with Ketamine. He then became quite somnolent, and was taken to the [facility] ED where it was determined that he was unable to protect his airway and the patient was intubated. Patient remained on AC ventilation settings overnight and was successfully extubated the following day. He remained somnolent throughout the day, and Speech therapy cleared patient for a stim diet. Today, patient was awake and alert. Sitting up and eating meals. PT walked patient without any difficulty. He was scheduled for a close followup at the [facility] for a new PCP and scheduled at [facility] for substance abuse counseling and treatment. Hospital Course This is a 27-year-old male with history of IV heroin and methamphetamine use who is entered to the ED with acute encephalopathy after having used IV methamphetamine and possibly heroin use on morning of admission. Patient was sedated requiring intubation to protect airway. Patient was admitted to ICU on ventilator for ventilator management and withdrawal from sedation. Acute drug-induced encephalopathy and psychosis secondary to acute Methamphetamine intoxication - Urine toxicology was positive for methamphetamine and opioids - Patient successfully extubated 07/03 - Maintained O2 sats greater than 93% - Gave Ativan PRN - discontinued restraints Hypokalemia -responded to treatment Transaminitis - AST of 68 with AST ALT ratio of 2:1 -monitored Hypoglycemia - Glucose normalized, likely stress reaction from acute intoxication Chronic Hepatitis B, and Hepatitis C infection, secondary to IV drug use -monitored Bipolar 1 disorder -takes Abilify as out patient, dose unknown. unsure when last dose was, held medications. -takes Celexa 40 mg daily as out patient. unsure when last dose was, held medications. Asthma -h/o -monitored Exam Vital Signs (Last) Date Time Temp Pulse Resp B/P Pulse Ox O2 Delivery O2 Flow Rate FiO2 07/05/17 08:01 36.7 75 16 115/61 99 Room Air 07/04/17 00:10 4.00 07/03/17 11:37 24 Exam Constitutional: Awake, alert and oriented. Head: normocephalic and atraumatic Eyes: EOMI. Pupils equal round and reactive to light Heart: regular rate and rhythm. No peripheral edema. Lungs: clear to auscultation bilaterally. no wheeze, rales, or rhonchi ABD: soft, nontender, bowel sounds present throughout Musculoskeletal: Moves all four extremities appropriately. Neuro: CN II-XII intact. No focal deficits. Skin: warm, diaphoretic. no rash. Psych: appropriate mood and affect Test 07/02/17 09:25 07/02/17 10:55 07/02/17 12:40 07/02/17 13:29 Troponin T 0.010ug/L (0.0-0.011) Salicylates Level < 3.0ug/mL (30-250) Acetaminophen Level < 15.0ug/mL Rx (10-25) Alcohols < 10mg/dL (0-10) Urine Color Yellow (YELLOW) Urine Appearance Clear (CLEAR,HAZY) Urine pH 6.0 (5.0-8.0) Urine Specific [place] 1.031 (1.003-1.035) Urine Protein 30mg/dL (NEG,TRACE) Urine Glucose (UA) Negativemg/dL (NEGATIVE) Urine Ketones Negativemg/dL (NEGATIVE) Urine Occult Blood Trace (NEGATIVE) Urine Nitrite Negative (NEGATIVE) Urine Bilirubin Negative (NEGATIVE) Urine Urobilinogen Normalmg/dL (NORMAL) Urine Leukocyte Esterase Negative (NEGATIVE) Urine RBC 0-2/hpf (0-2) Urine WBC 0-5/hpf (0-5) Urine Epithelial Cells None/hpf (NONE-MOD) Urine Crystals None seen (NONE SEEN) Urine Bacteria None/hpf (NONE-FEW) Urine Hyaline Casts Occasional/lpf (NONE) Urine Granular Casts None seen (NONE SEEN) Urine Waxy Casts None seen (NONE SEEN) Urine Red Blood Cell Casts None seen (NONE SEEN) Urine White Blood Cell Casts None seen (NONE SEEN) Urine Mucus Present (None Seen) Urine Trichomonas None seen (NONE SEEN) Urine Yeast None (NONE SEEN) Urinalysis Comment None Urine Culture Reflexed Not indicated Lactic Acid Level 1.8mmol/L (0.4-2.0) Magnesium Level 2.3mg/dL (1.6-2.6) Hepatitis A IgM Antibody Negative (Negative) Hepatitis B Surface Antigen Negative (Negative) Hepatitis B Core IgM Antibody Negative (Negative) Hepatitis C Antibody 10.6s/co ratio (0.0-0.9) Hepatitis C Antibody Confirmation Reactive (Non Reactive) Hepatitis C Comment Comment (.) Test 07/03/17 03:50 07/05/17 03:20 HIV (1&2) Ag and Ab, 4th Generation Non reactive (Non Reactive) White Blood Count 5.4th/mm3 (3.8-10.1) Red Blood Count 4.36mil/mm3 (4.40-5.80) Hemoglobin 12.6g/dL (13.8-17.2) Hematocrit 37.5% (41.0-50.0) Mean Corpuscular Volume 86.0fL (81-100) Mean Corpuscular Hemoglobin 28.9pg (27.0-35.0) Mean Corpuscular Hemoglobin Concent 33.6% (32.0-37.0) Red Cell Distribution Width 12.7% (12.3-15.4) Platelet Count 207bil/L (150-400) Neutrophils (%) (Auto) 54.0% (40-74) Lymphocytes (%) (Auto) 28.9% (14-46) Monocytes (%) (Auto) 12.1% (4-12) Eosinophils (%) (Auto) 4.8% (0-5) Basophils (%) (Auto) 0.2% (0-3) Sodium Level 141mEq/L (134-144) Potassium Level 3.8mEq/L (3.5-5.2) Chloride Level 105mEq/L (97-108) Carbon Dioxide Level 23mmol/L (18-29) Blood Urea Nitrogen 8mg/dL (6-20) Creatinine 0.48mg/dL (0.76-1.27) Estimat Glomerular Filtration Rate 219mL/min (>59) Glucose Level 108mg/dL (60-99) Calcium Level 8.5mg/dL (8.5-10.1) Total Bilirubin 0.3mg/dL (0.0-1.2) Aspartate Amino Transf (AST/SGOT) 31U/L (0-50) Alanine Aminotransferase (ALT/SGPT) 18U/L (0-44) Alkaline Phosphatase 53U/L (25-150) Total Protein 5.9g/dL (6.4-8.4) Albumin 3.4g/dL (3.4-5.0) Microbiology Results Nasal MRSA pending Discharge Medications Unable to Obtain Active Prescriptions or Reported Meds Followup Plan Disposition: home Follow-up plan Follow up with a Primary Care Provider in one week to establish care with a physician. Follow up with [facility] facility in one week for substance abuse counseling and recovery. Discharge Diet: No restrictions Discharge Activity: No restrictions Patient Instructions Establish with a primary care provider Follow-up Provider: SAV LION Follow-up with PCP in: 1 week Provider: SAV ASHTON Follow-up in: 1 week Time spent Greater than 30 minutes was spent in preparation of discharge with greater than 50% of that time dedicated to patient counseling and coordination of care. . Attending Statement The patient was seen and examined together with Dr. Zhou on 07/05/2017 and I agree with the history, exam and plan as outlined in the note above. . copies to: [facility] Henok Zhou DO Jul 05, 2017 15:59 Mynor Hdz MD Jul 06, 2017 05:56 Henok Zhou DO Jul 05, 2017 15:59
== END 2017-07-05 13:15 | disposition home or self-care (01) | DRG 917 ==
LOC: SED 09:25 → CCU 11:31 → PCC 07-04 09:03
PROVIDERS: ADMIT Internal Medicine; ATTEND Internal Medicine
PROC: 0BH18EZ Insertion of Endotracheal Airway into Trachea, Via Natural or Artificial Opening Endoscopic (ICD-10-PCS; principal; 2017-07-02)
PROC: 5A1945Z Respiratory Ventilation, 24-96 Consecutive Hours (ICD-10-PCS; 2017-07-02)
PROC: 4A033R1 Measurement of Arterial Saturation, Peripheral, Percutaneous Approach (ICD-10-PCS; 2017-07-02)
DX: T43.621A Poisoning by amphetamines, accidental (unintentional), initial encounter (principal); G92 Toxic encephalopathy; J96.01 Acute respiratory failure with hypoxia; B18.1 Chronic viral hepatitis B without delta-agent; T40.1X1A Poisoning by heroin, accidental (unintentional), initial encounter; Z65.3 Problems related to other legal circumstances; E87.6 Hypokalemia; R74.0 Nonspecific elevation of levels of transaminase and lactic acid dehydrogenase [LDH]; E16.2 Hypoglycemia, unspecified; B18.2 Chronic viral hepatitis C; F31.9 Bipolar disorder, unspecified; F19.159 Other psychoactive substance abuse with psychoactive substance-induced psychotic disorder, unspecified

== ENCOUNTER 2017-07-07 10:51 | Emergency (ER) | payer OTHER ==
[~2017-07-07] VITALS: Ht 175.3 cm; Wt 70.5 kg
[2017-07-07 10:52] VITALS: BP 115/75; PULSE 84; RESP 18; O2SAT 97
--- NOTE | 2017-07-07 12:03 | ED.REPORT ---
HPI-Eye Problem Date of Service Jul 07, 2017 ED Provider: Vincenzo Andrade PA-C Finesse is a 27-year-old male presenting to the emergency department with chief complaint of blurred vision. Patient states he was discharged from the hospital 2 days ago, and has had new onset double vision as well as blurred distance vision since then. He feels his right eye is more affected than his left. He also states that yesterday he saw "more red than usual." Denies other neurological symptoms like hearing changes, taste changes, smell changes, difficulty swallowing, weakness/numbness in his limbs, difficulty walking, headache. He also denies flashing lights and floaters in his vision. Patient reports that prior to his admission to the hospital he is told that he fell out of a car window and struck his head. He admits a history of IV drug use, but denies drug use since his discharge. Review of records indicates that he was hospitalized this facility and diagnosed with acute drug-induced encephalopathy and psychosis secondary to acute methamphetamine intoxication. He presented to the emergency department sedated on ketamine and was ultimately intubated for a brief period. CT performed at that time was reassuring. Nursing Notes Stated Complaint: BLURRY VISION Chief Complaint: Eye Nursing Notes Reviewed: Yes Allergies: Coded Allergies: acetaminophen (Verified Allergy, Severe, Anaphylaxis, 07/05/17) Reported from previous records Unable to Obtain Active Prescriptions or Reported Meds General Time Seen by MD: 11:02 Chief Complaint Other (blurred vision) Past Medical History Past Medical History none reported Smoking History Unknown if Ever Smoker Social History Drug Use: IV drugs Ambulatory Status Independent Review of Systems Review of Systems Note: Negative unless stated otherwise in history of present illness Physical Exam General: Well appearing, well developed, well nourished, no acute distress. Head: Atraumatic, normocephalic. No mastoid tenderness. Eyes: No scleral icterus or injection. No discharge. PERRL. EOMI. Vision grossly intact. Visual acuity tested at left eye 20/40, right eye 20 / 20, both eyes 20/40. Anterior chambers are clear. Normal red reflex bilaterally. No photophobia. Ears: Hearing grossly intact. Nose: Symmetrical, nares patent without discharge. No frontal or maxillary sinus tenderness. Mouth/pharynx: normal dentition, mucus membranes moist. Tonsils 2+ and symmetrical, uvula midline. Pharynx noninjected, no cobblestoning or discharge. Voice clear. Neck: No tenderness or lymphadenopathy. Trachea midline. Negative carotid bruit bilaterally. Respiratory: Regular rate and rhythm. Breath sounds present, clear to auscultation and equal bilaterally. No respiratory distress. No increased work of breathing, speaks in complete sentences. Cardiovascular: Regular rate and rhythm, without murmur, gallop or rub despite careful auscultation. No pedal edema. Gastrointestinal: Abdomen flat and non-tender without guarding or rebound. Bowel sounds normoactive. Skin: Warm and dry. Neurological: Normal finger-nose, rapid hand, heel-pizarro. Negative pronator drift. Normal gait, heel rise, toe rise, Romberg. Sensation and strength grossly intact in distal extremities. Patellar and Achilles reflexes intact and equal bilaterally. Cranial nerves: Vision grossly intact, PERRL, EOMI. Patient denies diplopia during examination. Facial motion symmetrical, sensation to light touch over forehead, maxilla and mandible present and equal B/L. Voice clear and fluent, no drooling/pooling of saliva, uvula rises midline. Psychological: Alert and oriented. Speech appropriate, linear and logical. Behavior appropriate. Initial Vital Signs Vital Signs (First) Date Time Temp Pulse Resp B/P Pulse Ox O2 Delivery O2 Flow Rate FiO2 07/07/17 10:52 36.5 84 18 115/75 97 Room Air Normal Re-Eval/Medical Decision Med Decision/Clinical Course 27-year-old male recently discharged from the hospital after hospitalization for drug induced encephalitis secondary to IV methamphetamine abuse. Patient reports blurred vision since his discharge 2 days ago with blurred distance and middle vision as well as diplopia and middle and distant vision. He denies other symptoms including sudden or severe headache. He reports that he believes his right eye is worse than his left and states that each eye individually appears to be relatively normal. Review of records indicates a normal head CT at his prior admission. Physical examination reveals a normal neurological examination, notably negative diplopia on extraocular movements. Visual acuity is noted to be 20/20 in the right eye, 20/40 in the left eye and 20/40 bilaterally. Examination is normal with negative anterior chamber, normal red reflex. I discussed his case with Dr. Rodriguez. He believes that light of his mild and inconsistent symptoms no further investigation is necessary here in the ED and is reassured against emergent condition such as CVA, intracranial bleeding at this time. We believe he is stable and safe to be discharged home. Provided primary care follow-up referral. Advised regarding primary care follow -up, provided emergency return precautions. Patient verbalized understanding of , and consent to, the plan. Discharge & Departure Primary Impression: Blurred vision Disposition: Home Discharge Condition All VS Reviewed: Yes Patient Instructions: Blurred Vision (ED) Additional Instructions: Evaluation for blurred vision in the emergency department includes interview, physical examination and review of records all of which are reassuring that this is unlikely to be caused by an immediately dangerous condition such as a stroke. We believe that you are stable and safe to be discharged home. I have provided a referral to primary care provider. Please contact them this afternoon to arrange to be seen as soon as possible for continued evaluation. Return to emergency department for any new or worsening symptoms including loss of vision, severe or worsening headache, vomiting, seizure or new neurological symptoms such as weakness in a limb. Referrals: [facility] Provider for APC: Randall Rodriguez MD Attending Statement I saw and evaluated the patient in conjunction with the PA. I agree with the plan and findings as documented above. 27 yo M presenting to the ED for evaluation of some vision changes. Well appearing, no acute distress. Nonlabored respirations. Good peripheral perfusion. RRR. EOMI. No evidence for a cranial nerve palsy. Afebrile, nontoxic appearing. Multiple sclerosis could always be considered, however no evidence of intranuclear ophthalmoplegia or other significant risk factors. Plan holding off on advanced imaging at this time given the relatively mild symptoms, reassuring visual acuity that is inconsistent with his complaint. Plan discharge home w/ very careful return precautions, close outpatient follow up. Patient agreeable to plan as stated, no further questions. Vincenzo Andrade PA-C Jul 07, 2017 12:03 Randall Rodriguez MD Jul 07, 2017 12:50
[2017-07-07 12:58] VITALS: BP 115/75; PULSE 84; RESP 18; O2SAT 97
== END 2017-07-07 12:45 | disposition home or self-care (01) ==
LOC: SED 10:51
DX: H53.8 Other visual disturbances (principal); J45.909 Unspecified asthma, uncomplicated; F15.10 Other stimulant abuse, uncomplicated; F11.10 Opioid abuse, uncomplicated; Z86.19 Personal history of other infectious and parasitic diseases; Z88.6 Allergy status to analgesic agent